=== PATIENT | male | born 2000 | race Caucasian/White ===

== ENCOUNTER 2022-12-12 11:50 | Emergency (ER) | payer SELFPAY ==
[2022-12-12 12:08] VITALS: BP 127/66; PULSE 76; RESP 18; TEMP 36.3; O2SAT 96; BMI 40.9
--- NOTE | 2022-12-12 12:17 | CRLHL7_ITS ---
For Patients: As a result of the Cures Act, medical imaging exams and procedure reports are released immediately into your electronic medical record. You may view this report before your referring provider. If you have questions, please contact your health care provider. Indication: Trauma. Technique: Three views right ankle Comparison: None. Findings: Bones: Alignment is normal. No fractures or bone lesions. Joint spaces: Unremarkable. Soft tissues: Unremarkable. Impression: No sign of acute injury. Dictated by John Arciniega MD @ 12/12/2022 12:49:53 PM (Electronically Signed)
--- NOTE | 2022-12-12 12:27 | ED.GENADULT ---
HPI - General Adult General Date Seen: 12/12/22 Chief complaint: Extremity Pain/Injury, Lower Stated complaint: R ankle injury Time Seen by Provider: 12/12/22 11:52 Source: patient Mode of arrival: ambulatory Limitations: no limitations History of Present Illness HPI narrative: Patient is a 22 year old male here for evaluation of his R ankle after an injury that occurred while at work. He says that a freezer door which is known to be somewhat loose fell off and landed on his ankle. He notes pain in the anterior ankle and says that walking increases his pain. Minimal swelling although there is a reddened area where the door his him. Related Data Allergies Allergy/AdvReac Type Severity Reaction Status Date / Time No Known Drug Allergies Allergy Verified 11/07/22 11:34 PFSH PFS Social History Smoking Status: Current every day smoker Do you use any of these nicotine containing products: Vaping Products Second hand tobacco smoke exposure: No How often do you have a drink containing alcohol: 2-4 times a month How many standard drinks containing alcohol do you have on a typical day: 1 or 2 How often do you have six or more drinks on one occasion: Never AUDIT-C Alcohol total score: 2 Non-prescribed substance use: denies use service: No Exam Narrative: Exam Narrative: Vital signs reviewed. In general, an alert well appearing young man. Extremity exam shows slight reddening over the anterior ankle and tenderness in this area. Minimal swelling is noted. No deformity. Remainder of the ankle is non tender Skin: otherwise warm and dry, intact Const: Vital Signs, click to edit/add: Vital Signs - 24 hr 12/12/22 12:08 Temperature 97.4 F L Pulse Rate [Pulse Oximeter] 76 Respiratory Rate 18 Blood Pressure [Ri ght Upper Arm] 127/66 Pulse Oximetry 96 Oxygen Delivery Me thod Room Air Documenting provider has reviewed patient's vital signs: yes Course Course Hospital Course: X-rays of the right ankle by my review are negative. Radiology also resume is negative. Will go ahead and use a gel splint, symptoms are likely soft tissue/ contusion but we discussed that if he is not improving over the next week he should be seen again as x-rays are not 100% accurate. Ibuprofen or Tylenol, ice as needed. I gave him a note for work tomorrow. Okay to return this weekend, the next time he is scheduled. Vital Signs Vital signs: Initial Vital Signs Temperature 97.4 F L 12/12/22 12:08 Temperature Source Temporal Artery Scan 12/12/22 12:08 Pulse Rate 76 12/12/22 12:08 Pulse Rhythm Regular 12/12/22 12:08 Respiratory Rate 18 12/12/22 12:08 Blood Pressure 127/66 12/12/22 12:08 Blood Pressure Mean 86 12/12/22 12:08 Blood Pressure Position Supine 12/12/22 12:08 Pulse Oximetry 96 12/12/22 12:08 Oxygen Delivery Method Room Air 12/12/22 12:08 Vital Signs Temperature 97.4 F L 12/12/22 12:08 Pulse Rate 76 12/12/22 12:08 Respiratory Rate 18 12/12/22 12:08 Blood Pressure 127/66 12/12/22 12:08 Pulse Oximetry 96 12/12/22 12:08 Oxygen Delivery Method Room Air 12/12/22 12:08 Temperature 97.4 F L 12/12/22 12:08 Pulse Rate 76 12/12/22 12:08 Respiratory Rate 18 12/12/22 12:08 Blood Pressure 127/66 12/12/22 12:08 Pulse Oximetry 96 12/12/22 12:08 Oxygen Delivery Method Room Air 12/12/22 12:08 Discharge Plan Discharge Clinical Impression: Injury of ankle, right Patient Disposition: Home, Self-Care Condition: Stable Instructions: Crush Injury (ED) Additional Instructions: Ibuprofen or Tylenol, ice several times over the next few days. Stirrup splint for comfort. Anticipate improvement over the next several days to week, if not you should be seen again for re-evaluation. Follow Up/Referrals: Provider,Not a Local [Primary Care Provider] - Stand Alone Forms: [employer] Info Instructions
== END 2022-12-12 13:21 | disposition home or self-care (01) ==
PROVIDERS: Emergency Provider Emergency Medicine
DX: S99.911A Unspecified injury of right ankle, initial encounter (principal)
CPT/HCPCS: 73610; 99283

== ENCOUNTER 2022-12-18 08:40 | Emergency (ER) | payer MEDICAID, SELFPAY ==
[2022-12-18] VITALS (27 sets, daily range): BP systolic 108–141; BP diastolic 47–81; PULSE 58–73; RESP 20; TEMP 36.8; O2SAT 95–100; BMI 40.9
--- NOTE | 2022-12-18 09:52 | ED.ABDPAIN ---
HPI - Abdominal Pain General Chief Complaint: Abdominal Pain Stated Complaint: vomiting,abdominal pain Time Seen by Provider: 12/18/22 09:37 History of Present Illness HPI narrative: This 22-year-old male comes in reporting abdominal pain that began this morning. He states that he vomited at about 8:00 a.m., about 1 hour prior to arrival. After vomiting he developed abdominal pain radiating from his upper epigastric region up into his throat. He now reports some pain diffusely throughout his abdomen. He was seen here a couple months ago and had a CT scan of his abdomen which showed evidence of epiploic appendagitis. These symptoms have completely resolved. He states that he does typically have vomiting on Mondays or Tuesdays and there is no clear answer as to why this is happening. He denies using any street drugs or marijuana. He is not on any other medications. He does not report fever or diarrhea. Related Data Home Medications Medication Instructions Recorded Confirmed albuterol sulfate 90 mcg/actuation 2 puff inhalation QD-QID PRN 12/18/22 12/18/22 aerosol inhaler (Ventolin HFA) wheezing cariprazine 1.5 mg capsule 1.5 mg PO DAILY 12/18/22 12/18/22 (Vraylar) Previous Rx's Medication Instructions Recorded albuterol sulfate 90 mcg/actuation 2 inh inhalation Q4-6H PRN #1 ea 12/18/22 breath activated powder inhaler ketorolac 10 mg tablet 10 mg PO TID 5 days #15 tabs 12/18/22 ondansetron HCl 4 mg tablet 4 mg PO Q6H #20 tabs 12/18/22 pantoprazole 20 mg tablet,delayed 20 mg PO DAILY #30 tabs 12/18/22 release (Protonix) Allergies Allergy/AdvReac Type Severity Reaction Status Date / Time No Known Drug Allergies Allergy Verified 11/07/22 11:34 Review of Systems Status of ROS Reports: 10 or more systems reviewed and unremarkable except as noted in History and below Narrative Constitutional: No fevers, no weight gain or loss. Eyes: No discharge. No vision changes. HENT: No congestion, no sore throat, no ear pain. Cardiovascular: No chest pain, no palpitations. Respiratory: No shortness of breath, no wheezes, no cough. Gastrointestinal: Abdominal pain with 1 episode of vomiting as described above. Genitourinary: No dysuria, no hematuria. Musculoskeletal: Normal range of motion. Skin: No rashes, no pruritis. Neurological: No dizziness, weakness, sensory change, speech change. Endo/Heme/Allergies: No bruising or bleeding. No polydipsia. Pysch: no suicidality, no anxiety, no insomnia. All other systems reviewed and are negative. PFSH PFS Social History Smoking Status: Current every day smoker Do you use any of these nicotine containing products: Vaping Products Second hand tobacco smoke exposure: No How often do you have a drink containing alcohol: 2-4 times a month How many standard drinks containing alcohol do you have on a typical day: 1 or 2 How often do you have six or more drinks on one occasion: Never AUDIT-C Alcohol total score: 2 Non-prescribed substance use: denies use service: No Exam Narrative: Exam Narrative: Constitutional: Well-developed, well-nourished, no acute distress. HEENT: Normocephalic, atraumatic. Neck: Normal range of motion. Nontender. Supple. Heart: Regular. No murmurs. Normal rate. Intact distal pulses. Lungs: Clear to auscultation. No chest discomfort. No wheezes, rhonchi, or rales. Abdomen: Diffuse pain throughout the abdomen. Mild rebound tenderness. Bowel sounds are decreased. Genitalia: Deferred. Back: No midline tenderness. Normal range of motion. Extremities: Normal range of motion. No injury. Skin: Intact. No rash. Warm. No erythema or pallor. Neurologic: No altered sensation. No weakness. Alert and oriented. Psychiatric: No suicidality. No anxiety or depression. No insomnia. Nursing notes and vitals signs are reviewed. Const: Vital Signs, click to edit/add: Vital Signs - 24 hr 12/18/22 08:58 12/18/22 09:06 12/18/22 09:15 Temperature 98.3 F Pulse Rate 73 71 Pulse Rate [Pulse Oximeter] 70 Respiratory Rate 20 Blood Pressure Blood Pressure [Le ft Upper Arm] 141/81 H Pulse Oximetry 96 96 95 Oxygen Delivery Me thod Room Air 12/18/22 09:30 12/18/22 09:32 12/18/22 09:45 Temperature Pulse Rate 68 71 70 Pulse Rate [Pulse Oximeter] Respiratory Rate Blood Pressure 119/72 Blood Pressure [Le ft Upper Arm] Pulse Oximetry 95 95 98 Oxygen Delivery Me thod 12/18/22 10:02 12/18/22 10:08 12/18/22 10:15 Temperature Pulse Rate 73 69 Pulse Rate [Pulse Oximeter] Respiratory Rate Blood Pressure 122/68 Blood Pressure [Le ft Upper Arm] Pulse Oximetry 97 96 Oxygen Delivery Me thod 12/18/22 10:17 12/18/22 10:18 12/18/22 10:30 Temperature Pulse Rate 63 62 68 Pulse Rate [Pulse Oximeter] Respiratory Rate Blood Pressure 117/58 L Blood Pressure [Le ft Upper Arm] Pulse Oximetry 97 97 99 Oxygen Delivery Me thod 12/18/22 10:32 12/18/22 10:45 12/18/22 11:00 Temperature Pulse Rate 71 66 62 Pulse Rate [Pulse Oximeter] Respiratory Rate Blood Pressure 118/61 Blood Pressure [Le ft Upper Arm] Pulse Oximetry 99 100 99 Oxygen Delivery Me thod 12/18/22 11:02 12/18/22 11:03 12/18/22 11:15 Temperature Pulse Rate 65 66 66 Pulse Rate [Pulse Oximeter] Respiratory Rate Blood Pressure 108/56 L Blood Pressure [Le ft Upper Arm] Pulse Oximetry 99 99 100 Oxygen Delivery Me thod 12/18/22 11:30 12/18/22 11:32 Temperature Pulse Rate 68 66 Pulse Rate [Pulse Oximeter] Respiratory Rate Blood Pressure 119/64 Blood Pressure [Le ft Upper Arm] Pulse Oximetry 100 100 Oxygen Delivery Me thod Course Vital Signs Vital signs: Initial Vital Signs Temperature 98.3 F 12/18/22 08:58 Temperature Source Temporal Artery Scan 12/18/22 08:58 Pulse Rate 70 12/18/22 08:58 Respiratory Rate 20 12/18/22 08:58 Blood Pressure 141/81 H 12/18/22 08:58 Blood Pressure Mean 101 12/18/22 08:58 Blood Pressure Position Semi-Fowlers 12/18/22 08:58 Pulse Oximetry 96 12/18/22 08:58 Oxygen Delivery Method Room Air 12/18/22 08:58 Vital Signs Temperature 98.3 F 12/18/22 08:58 Pulse Rate 70 12/18/22 08:58 Respiratory Rate 20 12/18/22 08:58 Blood Pressure 141/81 H 12/18/22 08:58 Pulse Oximetry 96 12/18/22 08:58 Oxygen Delivery Method Room Air 12/18/22 08:58 Temperature 98.3 F 12/18/22 08:58 Pulse Rate 66 12/18/22 11:32 Respiratory Rate 20 12/18/22 08:58 Blood Pressure 119/64 12/18/22 11:32 Pulse Oximetry 100 12/18/22 11:32 Oxygen Delivery Method Room Air 12/18/22 08:58 MDM - Abdominal Pain MDM Narrative Medical decision making narrative: This patient comes in with epigastric abdominal pain as described above. He arrives with normal vital signs and is not tripping triggers typically of an acute abdomen. He did have a CT scan done less than 2 months ago which showed evidence of epiploic appendagitis. These symptoms completely resolved. Today an IV was established where he received a L of normal saline along with Toradol 10 mg and Zofran 4 mg. This brought some minimal relief to his symptoms. Lab results returned with reassuring findings. The patient then received Maalox which did not bring much relief to his symptoms. It does seem that he has symptoms typical of a gastritis. I did recommend endoscopy if symptoms are persistent. He did received prescriptions for Protonix, Zofran, a refill of albuterol, and some tablets of Toradol. During the evaluation of this patient I considered multiple differential diagnosis considerations. The life-threatening differential diagnoses considered include: appendicitis, aortic aneurysm, mesenteric ischemia, bowel perforation, volvulus and bowel obstruction. Other differential diagnoses include but are not limited to: cholecystitis, pancreatitis, hepatitis, gastritis, GERD, diverticulitis, PUD, pyelonephritis/UTI, renal colic/stone, testicular torsion or other acute scrotal process, inflammatory bowel disease is, as well as other etiologies. Lab Data Labs: Lab Results 12/18/22 Range/Units 10:00 WBC 6.57 (4.50-11.00) K/uL RBC 5.44 (4.30-5.90) m/uL Hgb 15.3 (13.5-17.5) gm/dL Hct 46.1 (37.0-53.0) % MCV 85 (80-100) fL MCH 28 (26-34) pg MCHC 33 (32-36) gm/dL RDW Coeff of Damon 12.3 (11.5-15.5) % Plt Count 303 (140-440) K/uL Neut % (Auto) 54.8 (42.0-72.0) % Lymph % (Auto) 26.5 (20-44) % [place] % (Auto) 7.3 (0.0-11.0) % Eos % (Auto) 10.5 H (0.0-7.0) % Baso % (Auto) 0.6 (0.0-3.0) % Neut # (Auto) 3.60 (1.7-7.0) K/uL Lymph # (Auto) 1.74 (0.90-2.90) K/uL [place] # (Auto) 0.50 (0.00-0.90) K/UL Eos # (Auto) 0.70 H (0.00-0.50) K/uL Baso # (Auto) 0.04 (0.00-0.30) K/uL Sodium 141 (135-149) mmol/L Potassium 4.3 (3.6-5.1) mmol/L Chloride 105 (96-114) mmol/L Carbon Dioxide 24 (20-32) mmol/L BUN 12 (5-24) mg/dL Creatinine 0.7 (0.5-1.5) mg/dL Estimated Creat Clear 162.72 Estimated GFR 132 ml/min Glucose 101 (60-115) mg/dL Calcium 9.4 (8.4-10.6) mg/dL Discharge Plan Discharge Clinical Impression: Gastritis, Abdominal pain Prescriptions: New albuterol sulfate 90 mcg/actuation aerosol powdr breath activated 2 inh inhalation Q4-6H PRNQty: 1 0RF ondansetron HCl 4 mg tablet 4 mg PO Q6H Qty: 20 0RF ketorolac 10 mg tablet 10 mg PO TID 5 Days Qty: 15 0RF pantoprazole [Protonix] 20 mg tablet,delayed release (DR/EC) 20 mg PO DAILY Qty: 30 2RF No Action Vraylar 1.5 mg capsule 1.5 mg PO DAILY albuterol sulfate [Ventolin HFA] 90 mcg/actuation HFA aerosol inhaler 2 puff INHALATION QD-QID PRN (Reason: wheezing) Follow Up/Referrals: Provider,Not a Local [Primary Care Provider] -
[2022-12-18 10:09] LABS: Basophils Absolute Auto 0.04 K/uL (0.00-0.30); Basophils Percent Auto 0.6 % (0.0-3.0); Eosinophils Percent Auto 10.5 % (0.0-7.0); Hematocrit 46.1 % (37.0-53.0); Hemoglobin* 15.3 gm/dL (13.5-17.5); Immature Granulocytes Abs Auto 0.02 K/uL (0.00-0.30); Immature Granulocytes Pct Auto 0.3 %; Lymphocytes Absolute Auto 1.74 K/uL (0.90-2.90); Lymphocytes Percent Auto 26.5 % (20-44); Mean Corpuscular HGB Conc 33 gm/dL (32-36); Mean Corpuscular Hemoglobin 28 pg (26-34); Mean Corpuscular Volume 85 fL (80-100); Monocytes Percent Auto 7.3 % (0.0-11.0); Neutrophils Percent Auto 54.8 % (42.0-72.0); Platelet Count* 303 K/uL (140-440); RDW Coefficient of Variation % 12.3 % (11.5-15.5); Red Blood Count 5.44 m/uL (4.30-5.90); White Blood Count* 6.57 K/uL (4.50-11.00)
[2022-12-18 10:11] LABS: Slide Review Reflex No
[2022-12-18] MEDS: KETOROLAC 30 MG/ML inj IVP (10:16)
[2022-12-18] MEDS: 0.9 % SODIUM CHLORIDE 1000 ml 1,000 ML IV (10:17)
[2022-12-18] MEDS: ONDANSETRON 2 MG/ML inj 4 MG IVP (10:17)
[2022-12-18 10:20] LABS: Chloride* 105 mmol/L (96-114); Potassium* 4.3 mmol/L (3.6-5.1); Sodium* 141 mmol/L (135-149)
[2022-12-18 10:23] LABS: Blood Urea Nitrogen* 12 mg/dL (5-24); Carbon Dioxide* 24 mmol/L (20-32); Creatinine* 0.7 mg/dL (0.5-1.5); Est. Creatinine Clearance* 162.72; Estimated Glomerular Filt Rate 132 ml/min
[2022-12-18 10:24] LABS: Calcium* 9.4 mg/dL (8.4-10.6); Glucose* 101 mg/dL (60-115)
[2022-12-18] MEDS: MAG HYDROX/ALUMINUM HYD/SIMETH 30 ML ORAL.SUSP 15 ML PO (11:41)
--- NOTE | 2022-12-18 11:57 | ED.NURSE ---
reports that the Maalox didn't help and may have worsened is abd discomfort. up to br to void. at bs.
== END 2022-12-18 12:39 | disposition home or self-care (01) ==
LOC: ED 10:09
PROVIDERS: Emergency Provider Emergency Medicine Emergency Medical Services
DX: K29.70 Gastritis, unspecified, without bleeding (principal)
CPT/HCPCS: 36415; 80048; 85025; 96374; 96375; 99283; 99284; A9270; J1885; J2405; J7030